=== PATIENT | female | born 1945 | race Caucasian/White ===

== ENCOUNTER → 2017-03-07 09:38 | Outpatient (CLI) | payer MEDICARE, OTHER | END | disposition home or self-care (01) | LOC: D.MRI 09:38 | DX: R42 Dizziness and giddiness (principal) ==

== ENCOUNTER 2017-05-07 07:16 | Outpatient (CLI) | payer MEDICARE, OTHER ==
[~2017-05-07] VITALS: Ht 167.6 cm; Wt 76.4 kg
[2017-05-07] MEDS ORDERED: ABILIFY2 MG PO (08:09)
[2017-05-07] MEDS ORDERED: PROZAC10 MG PO (08:10)
[2017-05-07] MEDS ORDERED: ZOFRAN4 MG PO (08:14)
[2017-05-07] MEDS ORDERED: ZOCOR40 MG PO (08:16)
[2017-05-07] MEDS ORDERED: GEMFIBROZIL600 MG PO (08:16)
[2017-05-07 08:18] LABS: BASOPHILS 0.3 % (0-2); EOSINOPHILS 3.9 % (0-7); HEMOGLOBIN 11.4 g/dL (12-16); IMMATURE GRANULOCYTES 0.3 % (0-5); LYMPHOCYTES 25.1 % (15-50); MCHC 32.6 g/dL (31.0-37.0); MEAN PLATELET VOLUME 9.8 fL (7.4-10.4); MONOCYTES 11.4 % (2-11); PLATELET COUNT 271 10x3/uL (130-400); RBC 4.07 10x6/uL (4.00-5.40); WBC 3.1 10x3/uL (4.8-10.8)
[2017-05-07] MEDS ORDERED: GLUCOPHAGE1000 MG PO (08:18)
[2017-05-07] MEDS ORDERED: LISINOPRIL2.5 MG PO (08:18)
[2017-05-07] MEDS ORDERED: CLARITIN 10 MG10 MG PO (08:19)
[2017-05-07] MEDS ORDERED: ESTRACE1 MG PO (08:20)
[2017-05-07] MEDS ORDERED: MELATONIN5 MG PO (08:21)
[2017-05-07] MEDS ORDERED: RESTORIL7.5 MG PO (08:22)
[2017-05-07 08:32] VITALS: BP 113/68; Ht 167.6 cm; Wt 76.4 kg
[2017-05-07 08:35] LABS: CALC OSMOLALITY 280 mosm/kg (275-300); CALCIUM 9.1 mg/dL (8.5-10.1); CARBON DIOXIDE 24.3 mmol/L (21.0-32.0); CHLORIDE - SERUM 103 mmol/L (98-107); CREATININE - SERUM 0.5 mg/dL (0.6-1.3); GLUCOSE 132 mg/dL (74-106); POTASSIUM - SERUM 4.9 mmol/L (3.5-5.1); SODIUM 139 mmol/L (136-145); UREA NITROGEN 16 mg/dL (7-18); eGFR NON AFRICAN AMERICAN > 90 mL/min (90-120)
[2017-05-07 08:36] LABS: INR 0.9 (0.85-1.17)
--- NOTE | 2017-05-07 11:52 | NUR ---
1140-RECD FROM IR, POST OP BONE MARROW BX. RESP WITH EASE. DENIES PAIN. IV PATENT. DRESSING DRY AND INTACT.
--- NOTE | 2017-05-07 12:20 | NUR ---
1140 VITAL SIGNS DOCUMENTED PER MD ORDER VIA FREQUENT VITAL SHEET.
--- NOTE | 2017-05-07 14:31 | NUR ---
1350 DISCHARGE INSTRUCTIONS COMPLETE. SHE HAS NO QUESTIONS OR CONCERNS. NO DRAINAGE AT THIS TIME. VOLUNTEER ESCORTED PATIENT OUT.
== END 2017-05-07 13:50 ==
LOC: D.OPS 07:16 → D.CT 10:00 → D.OPS 13:50
PROVIDERS: General Practice
DX: D50.9 Iron deficiency anemia, unspecified (principal); I10 Essential (primary) hypertension; E11.9 Type 2 diabetes mellitus without complications; Z01.812 Encounter for preprocedural laboratory examination